=== PATIENT | male | born 1955 | race Caucasian/White ===

== ENCOUNTER 2018-06-13 05:00 | Inpatient (IN) ==
[2018-06-09 11:24] LABS: Basophils # 0.1 10*3/uL (0.0-0.2); Basophils % 0.6 % (0.0-0.8); Eosinophils # 0.1 10*3/uL (0.0-0.87); Eosinophils % 1.1 % (0.00-10.9); Hemoglobin 15.8 GM/DL (14.0-18.0); Immature Granulocytes % 0.4 %; Immature Granulocytes Absolute 0.03 #; Lymphocytes # 1.2 10*3/uL (1.4-4.0); Lymphocytes % 14.9 % (21.2-54.2); Mean Corpuscular HGB Conc 34.3 GM/DL (32-36); Mean Corpuscular Hemoglobin 29 PG (27-34); Mean Corpuscular Volume 85.7 FL (87-102); Monocytes # 0.9 10*3/uL (0.11-0.8); Monocytes % 10.8 % (1.7-12.7); Neutrophils % 72.2 % (38.7-73.9); Platelet Count 134 T/CUMM (130-400); Red Blood Count 5.37 MC/CUMM (3.8-5.5); Red Cell Distribution Width 12.3 % (9.3-17.3); White Blood Count 8.3 T/CUMM (4-12)
[2018-06-09 11:29] LABS: Apearance,Urine CLEAR (Clear); Bilirubin,Urine Negative (Negative); Blood, Urine Negative (Negative); Glucose,Urine (UA) >=500 mg/dL (Negative); Ketones,Urine Negative (Negative); Nitrite,Urine Negative (Negative); Protein,Urine Negative; RBC,Urine <1 /HPF (0-4); Urine Color Yellow (Yellow); Urine Specific Gravity 1.022 (1.001-1.035); Urine Urobilinogen < 2.0 EU/DL (0.2-1.0); WBC,Urine <1 /HPF (0-6)
[2018-06-09 11:40] LABS: INR 0.9; PT Patient Result 10.1 SECS; Partial Thromboplastin Time 26.1 SECS (0-40)
[2018-06-09 11:44] LABS: Osmolality,Calculated 281.4 MOS/KG (273-304); Potassium 4.2 MMOL/L (3.5-5.1)
[2018-06-13] MEDS ORDERED: PAPAVERINE 60 MG/2 ML VIAL ONE (05:01)
[2018-06-13] MEDS ORDERED: TISSUE ADHESIVE 1 EACH APPLICATOR TOP ONE (05:01)
[2018-06-13] MEDS ORDERED: VANCOMYCIN 1,000 MG VIAL ONE (05:02)
[2018-06-13] MEDS ORDERED: DIAZEPAM 5 MG TABLET PO ONE (05:30)
[2018-06-13] MEDS ORDERED: FAMOTIDINE 20 MG TABLET PO ONE (05:30)
[2018-06-13] MEDS ORDERED: SUFentanil 250 MCG/5 ML AMP ONE (05:56)
[2018-06-13] MEDS ORDERED: EPINEPHrine 1 MG/ML VIAL ONE (05:56)
[2018-06-13] MEDS ORDERED: PROPOFOL 1,000 MG/100 ML BOTTLE IV ONE (05:56)
[2018-06-13] MEDS ORDERED: MIDAZOLAM 10 MG/2 ML VIAL ONE (05:56)
[2018-06-13] MEDS ORDERED: CEFUROXIME 1,500 MG VIAL ONE (05:59)
[2018-06-13] MEDS ORDERED: LACTATED RINGERS 1,000 ML IV SCH (06:00)
[2018-06-13] MEDS ORDERED: FAMOTIDINE 20 MG TABLET ONE (06:04)
[2018-06-13] MEDS ORDERED: DIAZEPAM 5 MG TABLET ONE (06:04)
[2018-06-13] MEDS ORDERED: ALBUMIN 5% 12.5 GM/250 ML VIAL IV ONE (07:39)
[2018-06-13] MEDS ORDERED: PHENYLEPHRINE DRIP 40 MG/250 ML PREMIX IV ONE (07:40)
[2018-06-13] MEDS ORDERED: MIDAZOLAM 2 MG/2 ML VIAL ONE (07:41)
[2018-06-13] MEDS ORDERED: NITROPRUSSIDE 50 MG/2 ML VIAL ONE (07:41)
[2018-06-13 07:47] LABS: ABG Base Excess 0.9 MMOL/L (-2.5-2.5); ABG HCO3 25.2 MMOL/L (20-26); ABG PCO2 38.2 MM HG (35-48); ABG PH 7.426 (7.35-7.45); ABG TCO2 21.6 MMOL/L (23-27); Glucose Heart Surgery 302 MG/DL (74-106); Hematocrit Heart Surgery 42.7 PERCENT (42-52); Hemoglobin Heart Surgery 13.9 G/DL (14.0-18.0); Ionized Calcium Arterial 1.13 MMOL/L (1.21-1.46); PCO2 Patient Temp Arterial 38.2 MMHG; PH Patient Temp Arterial 7.426; Patient Temperature 37 CELCIUS; Potassium Heart/CVR 4.1 MMOL/L (3.5-5.1); Sodium Heart/CVR 133 MMOL/L (135-145)
[2018-06-13 08:20] LABS: Apearance,Urine CLEAR (Clear); Bilirubin,Urine Negative (Negative); Blood, Urine Negative (Negative); Glucose,Urine (UA) >=500 mg/dL (Negative); Ketones,Urine Negative (Negative); Nitrite,Urine Negative (Negative); Protein,Urine Negative; RBC,Urine <1 /HPF (0-4); Urine Color Yellow (Yellow); Urine Specific Gravity 1.018 (1.001-1.035); Urine Urobilinogen < 2.0 EU/DL (0.2-1.0)
[2018-06-13 09:18] LABS: Hematocrit Heart Surgery 32.7 PERCENT (42-52); Hemoglobin Heart Surgery 10.6 G/DL (14.0-18.0); PCO2 Patient Temp Venous 38.2 MM HG; PH Patient Temp Venous 7.436; PO2 Patient Temp Venous 36.3 MM HG; VBG Base Excess 1.7 MEQ/L (0-4); VBG HCO3 25.6 MEQ/L (24-28); VBG Oxygen Saturation 80.4 %; VBG PCO2 44.2 MMHG (41-51); VBG PH 7.392; VBG PO2 44.7 MMHG (17-40)
[2018-06-13 09:49] LABS: Hematocrit Heart Surgery 32.3 PERCENT (42-52); Hemoglobin Heart Surgery 10.5 G/DL (14.0-18.0); PCO2 Patient Temp Venous 33.2 MM HG; PH Patient Temp Venous 7.486; PO2 Patient Temp Venous 34.8 MM HG; Potassium Heart/CVR 4.3 MMOL/L (3.5-5.1); VBG HCO3 25.9 MEQ/L (24-28); VBG Oxygen Saturation 81.4 %; VBG PCO2 38.3 MMHG (41-51); VBG PH 7.441
[2018-06-13 10:18] LABS: Hematocrit Heart Surgery 32.4 PERCENT (42-52); Hemoglobin Heart Surgery 10.5 G/DL (14.0-18.0); PH Patient Temp Venous 7.513; PO2 Patient Temp Venous 31.7 MM HG; Potassium Heart/CVR 4.4 MMOL/L (3.5-5.1); VBG Base Excess 2.5 MEQ/L (0-4); VBG HCO3 26.2 MEQ/L (24-28); VBG Oxygen Saturation 77.6 %; VBG PCO2 35.8 MMHG (41-51); VBG PH 7.468; VBG PO2 39.1 MMHG (17-40)
[2018-06-13] MEDS ORDERED: MANNITOL 100 GM/500 ML BAG IV ONE (11:12)
[2018-06-13] MEDS ORDERED: ALBUMIN 25% 25 GM/100 ML VIAL IV ONE (11:12)
[2018-06-13] MEDS ORDERED: SODIUM BICARBONATE 50 MEQ/50 ML SYRINGE IV ONE ×2 (11:12→13:25)
[2018-06-13] MEDS ORDERED: DEXTROSE 5% KCL 20 MEQ 20 MEQ/1,000 ML BAG IV ONE (11:12)
[2018-06-13] MEDS ORDERED: MAGNESIUM SULFATE 10 GM/20 ML VIAL IV ONE (11:13)
[2018-06-13] MEDS ORDERED: PROTAMINE SULFATE 250 MG/25 ML VIAL IV ONE (11:13)
[2018-06-13] MEDS ORDERED: FUROSEMIDE 20 MG/2 ML VIAL ONE (11:13)
[2018-06-13] MEDS ORDERED: methylPREDNISolone SOD SUC 1,000 MG/8 ML VIAL ONE (11:13)
[2018-06-13] MEDS ORDERED: HEPARIN 10,000 UNIT/10 ML VIAL ONE (11:13)
[2018-06-13] MEDS ORDERED: THROMBIN TOPICAL (RECOMBINANT) 5,000 UNIT VIAL TOP ONE ×2 (11:14→11:30)
[2018-06-13] MEDS ORDERED: PROTAMINE SULFATE 50 MG/5 ML VIAL IV ONE (11:14)
[2018-06-13 11:22] LABS: ABG Base Excess -1.1 MMOL/L (-2.5-2.5); ABG HCO3 23.5 MMOL/L (20-26); ABG Oxygen Saturation 99.6 % (95-100); ABG PCO2 40.9 MM HG (35-48); ABG PH 7.377 (7.35-7.45); ABG TCO2 21.5 MMOL/L (23-27); Glucose Heart Surgery 319 MG/DL (74-106); Hematocrit Heart Surgery 34.7 PERCENT (42-52); Hemoglobin Heart Surgery 11.3 G/DL (14.0-18.0); Ionized Calcium Arterial 1.36 MMOL/L (1.21-1.46); PCO2 Patient Temp Arterial 40.9 MMHG; PH Patient Temp Arterial 7.377; Patient Temperature 37 CELCIUS; Potassium Heart/CVR 3.5 MMOL/L (3.5-5.1); Sodium Heart/CVR 132 MMOL/L (135-145)
[2018-06-13] MEDS ORDERED: ONDANSETRON 4 MG/2 ML VIAL IV PRN (12:04)
[2018-06-13] MEDS ORDERED: CALCIUM CHLORIDE 1,000 MG/10 ML SYRINGE IV PRN (12:04)
[2018-06-13] MEDS ORDERED: POTASSIUM CHLORIDE RIDER 20 MEQ in PREMIX 1 EACH IV PRN (12:04)
[2018-06-13] MEDS ORDERED: MIDAZOLAM 2 MG/2 ML VIAL IV PRN (12:04)
[2018-06-13] MEDS ORDERED: INSULIN REGULAR 100 UNIT/ML IV PRN (12:04)
[2018-06-13] MEDS ORDERED: DEXTROSE 50% 25 GM/50 ML SYRINGE IV PRN ×2 (12:04)
[2018-06-13] MEDS ORDERED: CHLORHEXIDINE 4% SOLN 118 ML BOTTLE TOP PRN (12:04)
[2018-06-13] MEDS ORDERED: MAGNESIUM SULF RIDER 4 GM in PREMIX 1 EACH IV PRN (12:04)
[2018-06-13] MEDS ORDERED: POTASSIUM CHLORIDE RIDER 10 MEQ in PREMIX 1 EACH IV PRN (12:04)
[2018-06-13] MEDS ORDERED: SODIUM CHLORIDE 0.9% 250 ML IV PRN (12:04)
[2018-06-13] MEDS ORDERED: ACETAMINOPHEN 650 MG SUPP RECTAL PRN (12:04)
[2018-06-13] MEDS ORDERED: MAGNESIUM SULF RIDER 2 GM in PREMIX 1 EACH IV PRN (12:04)
[2018-06-13] MEDS ORDERED: SEVOFLURANE 1 UNIT/15 MINUTE INH ONE (12:24)
[2018-06-13] MEDS ORDERED: CALCIUM CHLORIDE 1,000 MG/10 ML VIAL IV ONE (12:24)
[2018-06-13] MEDS ORDERED: PHENYLEPHRINE DRIP 20 MG/250 ML PREMIX IV ONE (12:24)
[2018-06-13] MEDS ORDERED: VECURONIUM 10 MG VIAL IV ONE (12:25)
[2018-06-13] MEDS ORDERED: PROPOFOL 1,500 MG/150 ML BOTTLE IV ONE (12:25)
[2018-06-13] MEDS ORDERED: AMINOCAPROIC ACID 5,000 MG/20 ML VIAL IV ONE (12:25)
[2018-06-13] MEDS ORDERED: ETOMIDATE 40 MG/20 ML VIAL IV ONE (12:25)
[2018-06-13] MEDS ORDERED: SODIUM CHLORIDE 0.9% 100 ML IV ONE (12:25)
[2018-06-13] MEDS ORDERED: SODIUM CHLORIDE 0.9% 250 ML IV ONE (12:25)
[2018-06-13] MEDS ORDERED: PHENYLEPHRINE 1 MG/10 ML SYRINGE IV ONE (12:26)
[2018-06-13] MEDS: SODIUM CHLORIDE 0.45% 1,000 ML IV SCH (12:30)
[2018-06-13] MEDS ORDERED: PHENYLEPHRINE DRIP 40 MG/250 ML PREMIX IV PRN (12:30)
[2018-06-13] MEDS ORDERED: SODIUM CHLORIDE 0.45% 1,000 ML IV SCH (12:30)
[2018-06-13] MEDS: ALBUMIN 5% 12.5 GM in PREMIX 1 EACH IV PRN ×4 (12:45→18:01)
[2018-06-13 12:54] LABS: ABG Base Excess -3.8 MMOL/L (-2.5-2.5); ABG HCO3 21.3 MMOL/L (20-26); ABG Oxygen Saturation 98.4 % (95-100); ABG PH 7.295 (7.35-7.45); ABG TCO2 20.9 MMOL/L (23-27); Glucose Heart Surgery 205 MG/DL (74-106); Hematocrit Heart Surgery 32.9 PERCENT (42-52); Hemoglobin Heart Surgery 10.7 G/DL (14.0-18.0); Potassium Heart/CVR 3.6 MMOL/L (3.5-5.1)
[2018-06-13] MEDS ORDERED: INSULIN REGULAR DRIP 100 ML IV SCH (13:00)
[2018-06-13 13:01] LABS: Basophils % 0.3 % (0.0-0.8); Eosinophils % 0.2 % (0.00-10.9); Hemoglobin 10.5 GM/DL (14.0-18.0); Immature Granulocytes % 0.8 %; Immature Granulocytes Absolute 0.08 #; Lymphocytes # 0.4 10*3/uL (1.4-4.0); Lymphocytes % 3.5 % (21.2-54.2); Mean Corpuscular HGB Conc 33.9 GM/DL (32-36); Mean Corpuscular Hemoglobin 29 PG (27-34); Mean Corpuscular Volume 86.8 FL (87-102); Monocytes # 0.7 10*3/uL (0.11-0.8); Monocytes % 6.4 % (1.7-12.7); Neutrophils # 9.3 10*3/uL (1.4-7.4); Neutrophils % 88.8 % (38.7-73.9); Platelet Count 135 T/CUMM (130-400); Red Blood Count 3.57 MC/CUMM (3.8-5.5); Red Cell Distribution Width 12.2 % (9.3-17.3); White Blood Count 10.5 T/CUMM (4-12)
[2018-06-13 13:06] LABS: INR 1.1; PT Patient Result 11.4 SECS; Partial Thromboplastin Time 27.8 SECS (0-40)
[2018-06-13 13:18] LABS: Blood Urea Nitrogen 25 MG/DL (7-18); Calcium 8.4 MG/DL (8.5-10.1); Glucose 193 MG/DL (74-106); Osmolality,Calculated 287.4 MOS/KG (273-304); Potassium 3.7 MMOL/L (3.5-5.1); Sodium 140 MMOL/L (136-145)
[2018-06-13 13:23] LABS: Lactic Acid 3.1 MMOL/L (0.4-2.0)
[2018-06-13 14:25] LABS: Band Neutrophils 2 % (0-10); Eosinophils 1 % (0-10); Lymphocytes 3 % (20-55); Segmented Neutrophils 90 % (50-85); Total Cells Counted 100
[2018-06-13 14:27] LABS: Platelet Estimate Decreased
[2018-06-13 15:18] LABS: ABG Base Excess -0.7 MMOL/L (-2.5-2.5); ABG HCO3 23.8 MMOL/L (20-26); ABG PCO2 48.7 MM HG (35-48); ABG PH 7.331 (7.35-7.45); ABG TCO2 23.1 MMOL/L (23-27); Glucose Heart Surgery 226 MG/DL (74-106); Hematocrit Heart Surgery 35.1 PERCENT (42-52); Hemoglobin Heart Surgery 11.4 G/DL (14.0-18.0); Potassium Heart/CVR 4.2 MMOL/L (3.5-5.1)
[2018-06-13 17:01] LABS: ABG Base Excess -1.3 MMOL/L (-2.5-2.5); ABG HCO3 23.4 MMOL/L (20-26); ABG Oxygen Saturation 99.3 % (95-100); ABG PCO2 40.6 MM HG (35-48); ABG PH 7.375 (7.35-7.45); ABG TCO2 21.3 MMOL/L (23-27); Glucose Heart Surgery 180 MG/DL (74-106); Hematocrit Heart Surgery 34.9 PERCENT (42-52); Hemoglobin Heart Surgery 11.3 G/DL (14.0-18.0); Potassium Heart/CVR 4.2 MMOL/L (3.5-5.1)
[2018-06-13] MEDS: MORPHINE 4 MG/1 ML VIAL IV PRN (17:37)
[2018-06-13] MEDS: MORPHINE 10 MG/1 ML VIAL IV PRN (19:28)
[2018-06-13] MEDS ORDERED: ASPIRIN 325 MG TABLET PO ONE (19:51)
[2018-06-13] MEDS ORDERED: CYCLOBENZAPRINE 10 MG TABLET PO PRN (19:52)
[2018-06-13] MEDS: CEFUROXIME INJ 1,500 MG in SYRINGE 1 EACH IV SCH (20:19)
[2018-06-13] MEDS: CHLORHEXIDINE 0.12% ORAL RINSE 60 ML BOTTLE SWISH/SPIT SCH (20:20)
[2018-06-14] MEDS: MORPHINE 10 MG/1 ML VIAL IV PRN (00:43)
[2018-06-14] MEDS: SODIUM CHLORIDE 0.45% 1,000 ML IV SCH (02:45)
[2018-06-14 04:32] LABS: Basophils % 0.2 % (0.0-0.8); Hematocrit 28.1 VOL% (42.0-52.0); Hemoglobin 9.4 GM/DL (14.0-18.0); Immature Granulocytes % 0.4 %; Immature Granulocytes Absolute 0.05 #; Lymphocytes # 0.3 10*3/uL (1.4-4.0); Lymphocytes % 2.4 % (21.2-54.2); Mean Corpuscular HGB Conc 33.5 GM/DL (32-36); Mean Corpuscular Hemoglobin 30 PG (27-34); Mean Corpuscular Volume 88.1 FL (87-102); Monocytes # 0.8 10*3/uL (0.11-0.8); Monocytes % 6.1 % (1.7-12.7); Neutrophils # 11.7 10*3/uL (1.4-7.4); Neutrophils % 90.9 % (38.7-73.9); Platelet Count 122 T/CUMM (130-400); Red Blood Count 3.19 MC/CUMM (3.8-5.5); Red Cell Distribution Width 12.5 % (9.3-17.3); White Blood Count 12.9 T/CUMM (4-12)
[2018-06-14 04:49] LABS: Calcium 7.7 MG/DL (8.5-10.1); Osmolality,Calculated 288.1 MOS/KG (273-304); Potassium 4.4 MMOL/L (3.5-5.1)
[2018-06-14 05:03] LABS: Band Neutrophils 2 % (0-10); Hypochromasia 1+; Lymphocytes 3 % (20-55); Platelet Estimate Normal; Segmented Neutrophils 88 % (50-85); Total Cells Counted 100
[2018-06-14] MEDS: MORPHINE 4 MG/1 ML VIAL IV PRN ×3 (05:30→15:07)
[2018-06-14] MEDS ORDERED: GLUCAGON 1 MG VIAL IM PRN (07:04)
[2018-06-14] MEDS ORDERED: DEXTROSE 50% 25 GM/50 ML VIAL IV PRN (07:04)
[2018-06-14] MEDS ORDERED: CYCLOBENZAPRINE 10 MG TABLET PO PRN (07:21)
[2018-06-14] MEDS ORDERED: NON-FORMULARY MEDICATION (Testosterone Enanthate [Testosterone Enanthate] 200 MG) IM SCH (07:21)
[2018-06-14] MEDS: CEFUROXIME INJ 1,500 MG in SYRINGE 1 EACH IV SCH ×2 (08:30→21:36)
[2018-06-14] MEDS: INSULIN REGULAR 100 UNIT/ML SUBCUT SCH ×4 (08:39→21:52)
[2018-06-14] MEDS: OMEGA 3 ACID ETHYL ESTERS 1 GM CAPSULE PO SCH ×2 (08:57→22:15)
[2018-06-14] MEDS: PANTOPRAZOLE 40 MG TABLET PO SCH (08:57)
[2018-06-14] MEDS: CHLORHEXIDINE 0.12% ORAL RINSE 60 ML BOTTLE SWISH/SPIT SCH ×2 (08:57→21:43)
[2018-06-14] MEDS: MULTIVITAMIN (CENTRUM) TABLET PO SCH (08:57)
[2018-06-14] MEDS: CLOPIDOGREL 75 MG TABLET PO SCH (08:57)
[2018-06-14] MEDS: FUROSEMIDE 40 MG TABLET PO SCH (08:57)
[2018-06-14] MEDS: GABAPENTIN 300 MG CAPSULE PO SCH ×2 (08:57→21:40)
[2018-06-14] MEDS: sitaGLIPtin 100 MG TABLET PO SCH (08:57)
[2018-06-14] MEDS: ASPIRIN EC 325 MG TABLET PO SCH (08:57)
[2018-06-14] MEDS ORDERED: NON-FORMULARY MEDICATION (Varenicline Tartrate [Chantix Starter Month Pack] 1 EACH) PO SCH (09:00)
[2018-06-14] MEDS ORDERED: NON-FORMULARY MEDICATION (Fenofibric Acid (Choline) [Fenofibric Acid] 135 MG) PO SCH (09:00)
[2018-06-14] MEDS ORDERED: PANTOPRAZOLE 40 MG VIAL IV SCH (09:00)
[2018-06-14] MEDS: EZETIMIBE 10 MG TABLET PO SCH (21:39)
[2018-06-14] MEDS: TAMSULOSIN 0.4 MG CAPSULE PO SCH (21:40)
[2018-06-14] MEDS: buPROPion 100 MG TABLET PO SCH (21:40)
[2018-06-14] MEDS: ATORVASTATIN 40 MG TABLET PO SCH (21:40)
[2018-06-14] MEDS: DOCUSATE SODIUM 100 MG CAPSULE PO SCH (21:41)
[2018-06-15] MEDS: INSULIN REGULAR 100 UNIT/ML SUBCUT SCH ×6 (01:04→21:37)
[2018-06-15 04:39] LABS: Basophils % 0.4 % (0.0-0.8); Eosinophils % 0.5 % (0.00-10.9); Hematocrit 28.1 VOL% (42.0-52.0); Hemoglobin 9.4 GM/DL (14.0-18.0); Immature Granulocytes % 0.4 %; Immature Granulocytes Absolute 0.03 #; Lymphocytes # 0.7 10*3/uL (1.4-4.0); Lymphocytes % 8.7 % (21.2-54.2); Mean Corpuscular HGB Conc 33.5 GM/DL (32-36); Mean Corpuscular Hemoglobin 30 PG (27-34); Mean Corpuscular Volume 88.6 FL (87-102); Mean Platelet Volume 11.2 FL (9.6-12.0); Monocytes % 12.5 % (1.7-12.7); Neutrophils # 6.1 10*3/uL (1.4-7.4); Neutrophils % 77.5 % (38.7-73.9); Platelet Count 122 T/CUMM (130-400); Red Blood Count 3.17 MC/CUMM (3.8-5.5); Red Cell Distribution Width 12.3 % (9.3-17.3); White Blood Count 7.8 T/CUMM (4-12)
[2018-06-15 04:58] LABS: Calcium 8.1 MG/DL (8.5-10.1); Osmolality,Calculated 284.8 MOS/KG (273-304); Potassium 4.1 MMOL/L (3.5-5.1)
[2018-06-15] MEDS ORDERED: PNEUMOCOCCAL VACCINE (23 VALENT) 0.5 ML VIAL IM ONE (07:00)
[2018-06-15] MEDS ORDERED: INFLUENZA VIRUS VACCINE 0.5 ML SYRINGE IM ONE (07:00)
[2018-06-15] MEDS: MORPHINE 4 MG/1 ML VIAL IV PRN (08:12)
[2018-06-15] MEDS: CLOPIDOGREL 75 MG TABLET PO SCH (08:16)
[2018-06-15] MEDS: PANTOPRAZOLE 40 MG TABLET PO SCH (08:16)
[2018-06-15] MEDS: sitaGLIPtin 100 MG TABLET PO SCH (08:16)
[2018-06-15] MEDS: BISACODYL 5 MG TABLET PO SCH (08:16)
[2018-06-15] MEDS: ASPIRIN EC 325 MG TABLET PO SCH (08:16)
[2018-06-15] MEDS: FUROSEMIDE 40 MG TABLET PO SCH (08:17)
[2018-06-15] MEDS: GABAPENTIN 300 MG CAPSULE PO SCH ×2 (08:17→21:36)
[2018-06-15] MEDS: CHLORHEXIDINE 0.12% ORAL RINSE 60 ML BOTTLE SWISH/SPIT SCH ×2 (08:17→21:35)
[2018-06-15] MEDS: DOCUSATE SODIUM 100 MG CAPSULE PO SCH ×2 (08:17→21:35)
[2018-06-15] MEDS: MULTIVITAMIN (CENTRUM) TABLET PO SCH (08:17)
[2018-06-15] MEDS: OMEGA 3 ACID ETHYL ESTERS 1 GM CAPSULE PO SCH ×2 (08:22→21:36)
[2018-06-15] MEDS ORDERED: MAGNESIUM HYDROXIDE SUSP 30 ML UDCUP PO PRN (15:56)
[2018-06-15] MEDS: EZETIMIBE 10 MG TABLET PO SCH (21:35)
[2018-06-15] MEDS: TAMSULOSIN 0.4 MG CAPSULE PO SCH (21:36)
[2018-06-15] MEDS: ATORVASTATIN 40 MG TABLET PO SCH (21:36)
[2018-06-15] MEDS: buPROPion 100 MG TABLET PO SCH (21:36)
[2018-06-15] MEDS: METOPROLOL TARTRATE 25 MG TABLET PO SCH (21:36)
[2018-06-16] MEDS: INSULIN REGULAR 100 UNIT/ML SUBCUT SCH ×6 (03:25→20:42)
[2018-06-16 04:48] LABS: Basophils % 0.5 % (0.0-0.8); Eosinophils # 0.2 10*3/uL (0.0-0.87); Eosinophils % 2.6 % (0.00-10.9); Hematocrit 28.1 VOL% (42.0-52.0); Hemoglobin 9.3 GM/DL (14.0-18.0); Immature Granulocytes % 0.4 %; Immature Granulocytes Absolute 0.03 #; Lymphocytes # 0.9 10*3/uL (1.4-4.0); Lymphocytes % 11.8 % (21.2-54.2); Mean Corpuscular HGB Conc 33.1 GM/DL (32-36); Mean Corpuscular Hemoglobin 29 PG (27-34); Mean Corpuscular Volume 87.8 FL (87-102); Mean Platelet Volume 11.1 FL (9.6-12.0); Monocytes % 12.1 % (1.7-12.7); Neutrophils # 5.8 10*3/uL (1.4-7.4); Neutrophils % 72.6 % (38.7-73.9); Platelet Count 134 T/CUMM (130-400); Red Cell Distribution Width 12.1 % (9.3-17.3); White Blood Count 7.9 T/CUMM (4-12)
[2018-06-16 05:00] LABS: Calcium 8.2 MG/DL (8.5-10.1)
[2018-06-16 05:01] LABS: Osmolality,Calculated 283.7 MOS/KG (273-304); Potassium 4.2 MMOL/L (3.5-5.1)
[2018-06-16 05:31] LABS: Hypochromasia 1+; Platelet Estimate Normal
[2018-06-16] MEDS: OMEGA 3 ACID ETHYL ESTERS 1 GM CAPSULE PO SCH ×2 (09:18→20:41)
[2018-06-16] MEDS: FUROSEMIDE 40 MG TABLET PO SCH (09:18)
[2018-06-16] MEDS: ASPIRIN EC 325 MG TABLET PO SCH (09:18)
[2018-06-16] MEDS: sitaGLIPtin 100 MG TABLET PO SCH (09:18)
[2018-06-16] MEDS: GABAPENTIN 300 MG CAPSULE PO SCH ×2 (09:18→20:41)
[2018-06-16] MEDS: BISACODYL 5 MG TABLET PO SCH (09:18)
[2018-06-16] MEDS: CLOPIDOGREL 75 MG TABLET PO SCH (09:19)
[2018-06-16] MEDS: METOPROLOL TARTRATE 25 MG TABLET PO SCH (09:19)
[2018-06-16] MEDS: CHLORHEXIDINE 0.12% ORAL RINSE 60 ML BOTTLE SWISH/SPIT SCH ×2 (09:19→20:44)
[2018-06-16] MEDS: MULTIVITAMIN (CENTRUM) TABLET PO SCH (09:19)
[2018-06-16] MEDS: DOCUSATE SODIUM 100 MG CAPSULE PO SCH ×2 (09:19→20:41)
[2018-06-16] MEDS: PANTOPRAZOLE 40 MG TABLET PO SCH (09:19)
[2018-06-16] MEDS: TAMSULOSIN 0.4 MG CAPSULE PO SCH (20:41)
[2018-06-16] MEDS: EZETIMIBE 10 MG TABLET PO SCH (20:41)
[2018-06-16] MEDS: CARVEDILOL 3.125 MG TABLET PO SCH (20:41)
[2018-06-16] MEDS: buPROPion 100 MG TABLET PO SCH (20:41)
[2018-06-16] MEDS: ATORVASTATIN 40 MG TABLET PO SCH (20:42)
[2018-06-17] MEDS: INSULIN REGULAR 100 UNIT/ML SUBCUT SCH ×4 (01:00→11:40)
[2018-06-17] MEDS: DOCUSATE SODIUM 100 MG CAPSULE PO SCH (09:28)
[2018-06-17] MEDS: OMEGA 3 ACID ETHYL ESTERS 1 GM CAPSULE PO SCH (09:28)
[2018-06-17] MEDS: CLOPIDOGREL 75 MG TABLET PO SCH (09:29)
[2018-06-17] MEDS: MULTIVITAMIN (CENTRUM) TABLET PO SCH (09:29)
[2018-06-17] MEDS: GABAPENTIN 300 MG CAPSULE PO SCH (09:29)
[2018-06-17] MEDS: BISACODYL 5 MG TABLET PO SCH (09:29)
[2018-06-17] MEDS: ASPIRIN EC 325 MG TABLET PO SCH (09:30)
[2018-06-17] MEDS: PANTOPRAZOLE 40 MG TABLET PO SCH (09:30)
[2018-06-17] MEDS: sitaGLIPtin 100 MG TABLET PO SCH (09:30)
[2018-06-17] MEDS: FUROSEMIDE 40 MG TABLET PO SCH (09:30)
[2018-06-17] MEDS: CARVEDILOL 3.125 MG TABLET PO SCH (09:30)
[2018-06-17] MEDS: CHLORHEXIDINE 0.12% ORAL RINSE 60 ML BOTTLE SWISH/SPIT SCH (09:33)
[2018-06-17 12:13] VITALS: BP 125/61
== END 2018-06-17 15:16 | disposition home health service (06) | DRG 221 ==
LOC: N.SDSINP 05:24 → N.CVR 07:19 → N.ICU 06-14 08:59 → N.TELES 06-14 11:27
PROVIDERS: ADMIT Thoracic Surgery (Cardiothoracic Vascular Surgery); ATTEND Thoracic Surgery (Cardiothoracic Vascular Surgery)
PROC: CABGAVR (ICD-10-PCS; 2018-06-13 06:51)